=== PATIENT | female | born 1990 | race Asian ===

== ENCOUNTER → 2022-12-30 | Outpatient (CLI) | payer OTHER | END | disposition home or self-care (01) | LOC: RADMN 12:56 | PROVIDERS: ATTEND Internal Medicine | DX: Z86.11 Personal history of tuberculosis (principal) | CPT/HCPCS: 71045 ==

== ENCOUNTER → 2023-09-10 | Outpatient (CLI) | payer OTHER ==
[2023-09-10 06:47] LABS: HEMOGLOBIN A1C 5.2 % (3.8-5.6)
[2023-09-10 07:08] LABS: ALANINE AMINOTRANSFERASE 12 U/L (12-78); ALBUMIN 3.9 g/dL (3.4-5.0); ALKALINE PHOSPHATASE 61 U/L (46-116); ANION GAP 8 mmol/L (8-16); ASPARTATE AMINOTRANSFERASE 13 U/L (15-37); BILIRUBIN,TOTAL 0.6 mg/dL (0.1-1.0); CALCIUM, TOTAL 8.4 mg/dL (8.8-10.5); CARBON DIOXIDE 26 mmol/L (22-29); CHLORIDE 103 mmol/L (98-107); CHOL/HDL RATIO 2.7 (3.9-5.7); CHOLESTEROL 160 mg/dL (131-200); CREATININE 0.63 mg/dL (0.60-1.30); GLOMERULAR FILTR. RATE CALC > 60 mL/min (>60); GLUCOSE,RANDOM 102 mg/dL (70-110); HDL CHOLESTEROL 59 mg/dL (40-60); LDL CHOL (CALC.) 95 mg/dL (0-130); POTASSIUM 4.3 mmol/L (3.5-5.1); SODIUM SERUM 137 mmol/L (136-145); THYROID STIMULATING HORMONE 1.23 uIU/mL (0.36-3.74); TOTAL PROTEIN, SERUM 7.6 g/dL (6.4-8.2); TRIGLYCERIDES 28 mg/dL (15-150); UREA NITROGEN, BLOOD 11 mg/dL (7-18)
[2023-09-10 09:47] LABS: FOLATE SERUM 18.5 ng/mL (5.4-)
[2023-09-11 11:07] LABS: CREATININE, URINE (mALB) 203.1 mg/dL (Not Estab.)
== END | disposition home or self-care (01) ==
LOC: LABMN 06:03
PROVIDERS: ATTEND Internal Medicine Geriatric Medicine
DX: Z00.00 Encounter for general adult medical examination without abnormal findings (principal)
CPT/HCPCS: 80053; 80061; 82043; 82306; 82570; 82607; 82746; 83036; 84443

== ENCOUNTER 2023-10-21 08:41 | Emergency (ER) | payer OTHER ==
[~2023-10-21] VITALS: Ht 154.9 cm; Wt 53.6 kg
[2023-10-21 08:51] VITALS: TEMP 97.9
[2023-10-21 08:56] LABS: COVID AG,FIA SOURCE NASAL SWAB
[2023-10-21 09:18] LABS: SARS-COV2 (COVID) ANTIGEN,FIA Negative (Negative)
[2023-10-21 09:27] LABS: INFLUENZA TYPE A NEGATIVE FOR TYPE A (NEGATIVE); INFLUENZA TYPE B NEGATIVE FOR TYPE B (NEGATIVE)
[2023-10-21 09:29] LABS: RAPID GROUP A STREP NEGATIVE (NEGATIVE)
[2023-10-21] MEDS: PENICILLIN V POTASSIUM 500 MG TABLET PO ONE (10:10)
[2023-10-21] MEDS ORDERED: PENI500T2 PO (10:19)
[2023-10-21] MEDS ORDERED: IBUP-1492 PO (10:19)
[2023-10-21 10:39] VITALS: BP 123/67; PULSE 89; RESP 16
== END 2023-10-21 10:41 | disposition home or self-care (01) ==
LOC: EMS 08:41
DX: J02.9 Acute pharyngitis, unspecified (principal); Z20.822 Contact with and (suspected) exposure to COVID-19
CPT/HCPCS: 87430; 87804; 99283

== ENCOUNTER 2023-11-01 17:32 | Emergency (ER) | payer OTHER ==
[~2023-11-01] VITALS: Ht 157.5 cm; Wt 53.6 kg
[~2023-11-01 17:32] MED LIST: IBUP-1492 PO; PENI500T2 PO
[2023-11-01] MEDS: ACETAMINOPHEN/CODEINE 300-30 MG TABLET PO ONE (19:04)
[2023-11-01] MEDS: IBUPROFEN 600 MG TABLET PO ONE (19:04)
[2023-11-01] MEDS: LIDOCAINE 2% VISCOUS 15 ML SOLUTION UDCUP PO ONE (19:22)
[2023-11-01] MEDS: LIDOCAINE 1% 10 ML VIAL SQ ONE (19:50)
[2023-11-01] MEDS ORDERED: IBUP-1554 PO (20:03)
[2023-11-01] MEDS ORDERED: AMOX-457 PO (20:03)
[2023-11-01] MEDS ORDERED: ACET-2080 PO (20:03)
[2023-11-01] MEDS: AMOX TR/POT CLAV 875 MG/125 MG TABLET PO ONE (20:20)
[2023-11-01 20:45] VITALS: BP 110/60; PULSE 72; RESP 16; TEMP 98.2
== END 2023-11-01 20:49 | disposition home or self-care (01) ==
LOC: EMS 17:36
DX: J02.9 Acute pharyngitis, unspecified (principal)
CPT/HCPCS: 99284; 10160; 87430; J3490

== ENCOUNTER 2023-11-14 01:24 | Emergency (ER) | payer OTHER ==
[~2023-11-14] VITALS: Ht 157.5 cm; Wt 53.6 kg
[~2023-11-14 01:24] MED LIST changes: +ACET-2080 PO; +AMOX-457 PO; +IBUP-1554 PO
[2023-11-14] MEDS: PENICILLIN G BENZATHINE LA 1,200,000 UNITS/2 ML SYRINGE IM ONE (04:23)
[2023-11-14 04:28] VITALS: BP 121/70; PULSE 67; RESP 16; TEMP 97.3
[2023-11-15] MEDS ORDERED: AZIT250T9 PO (03:07)
== END 2023-11-14 04:30 | disposition home or self-care (01) ==
LOC: EMS 01:24
DX: J02.0 Streptococcal pharyngitis (principal)
CPT/HCPCS: 99283; 87430; 96372; J0561

== ENCOUNTER 2023-11-14 23:01 | Emergency (ER) | payer OTHER ==
[~2023-11-14] VITALS: Ht 157.5 cm; Wt 53.0 kg
[2023-11-15] MEDS ORDERED: AZIT250T9 PO (03:07)
[2023-11-15] MEDS: AZITHROMYCIN 500 MG TABLET PO ONE (03:39)
[2023-11-15] MEDS: IBUPROFEN 600 MG TABLET PO ONE (03:39)
[2023-11-15] MEDS: LIDOCAINE 2% VISCOUS 15 ML SOLUTION UDCUP PO ONE (03:40)
[2023-11-15 04:00] VITALS: BP 124/69; PULSE 76; RESP 20; TEMP 97.3
== END 2023-11-15 04:00 | disposition home or self-care (01) ==
LOC: EMS 23:01
DX: J02.9 Acute pharyngitis, unspecified (principal)
CPT/HCPCS: 99284; Q9967; Z7502; Z7610

== ENCOUNTER → 2024-01-23 | Outpatient (CLI) | payer OTHER ==
[2024-01-23 12:23] LABS: EOSINOPHILS % (AUTO) 1.1 % (1.0-6.0); HEMATOCRIT 39.8 % (36-46); HEMOGLOBIN 13.1 g/dL (12.0-16.0); LYMPHOCYTES # (AUTO) 2.3 K/uL (1.0-4.8); LYMPHOCYTES % (AUTO) 31.2 % (22.0-44.0); MEAN CORPUSCULAR HEMOGLOBIN 29.5 pg (26.0-34.0); MEAN CORPUSCULAR HGB CONC 32.9 G/dL (31.0-37.0); MEAN CORPUSCULAR VOLUME 90 fL (80-100); MONOCYTES # (AUTO) 0.6 K/uL (0.1-1.0); MONOCYTES % (AUTO) 8.7 % (2.0-9.0); NEUTROPHILS # (AUTO) 4.2 K/uL (1.8-7.7); PLATELET COUNT (AUTO) 304 K/uL (150-450); RED BLOOD CELL COUNT(AUTO) 4.43 MIL/uL (4.00-5.20); RED CELL DISTRIBUTION WIDTH 14.1 % (11.5-14.5); WHITE BLOOD COUNT (AUTO) 7.3 K/uL (4.5-11.0)
[2024-01-23 12:34] LABS: ALANINE AMINOTRANSFERASE 19 U/L (12-78); ALBUMIN 3.6 g/dL (3.4-5.0); ALKALINE PHOSPHATASE 55 U/L (46-116); ANION GAP 12 mmol/L (8-16); ASPARTATE AMINOTRANSFERASE 14 U/L (15-37); BILIRUBIN,TOTAL 0.2 mg/dL (0.1-1.0); CALCIUM, TOTAL 8.2 mg/dL (8.8-10.5); CARBON DIOXIDE 25 mmol/L (22-29); CHLORIDE 102 mmol/L (98-107); GLOMERULAR FILTR. RATE CALC > 60 mL/min (>60); GLUCOSE,RANDOM 93 mg/dL (70-110); POTASSIUM 3.9 mmol/L (3.5-5.1); SODIUM SERUM 139 mmol/L (136-145); TOTAL PROTEIN, SERUM 7.1 g/dL (6.4-8.2); UREA NITROGEN, BLOOD 17 mg/dL (7-18)
[2024-01-23 12:38] LABS: PROTHROMBIN TIME 10.6 SEC (9.4-11.6)
== END | disposition home or self-care (01) ==
LOC: LABMN 11:53
PROVIDERS: ATTEND Internal Medicine Geriatric Medicine
DX: C11.9 Malignant neoplasm of nasopharynx, unspecified (principal)
CPT/HCPCS: 80053; 85025; 85610; 85730